=== PATIENT | male | born 1990 | race Caucasian/White ===

== ENCOUNTER 2019-04-14 08:46 | Emergency (ER) | payer MEDICAID ==
[2019-04-14] MEDS: HYDROCODONE/APAP (5/325) TAB PO (09:30)
[2019-04-14] MEDS: ONDANSETRON (ODT) 4 MG TAB ODT (09:31)
== END 2019-04-14 10:25 | disposition home or self-care (01) ==
LOC: FTE 08:46
DX: M54.5 Low back pain (principal)
CPT/HCPCS: 72100; 72220; 99283-25